=== PATIENT | male | born 1990 | race African-American/Black ===

== ENCOUNTER 2018-11-17 19:13 | Emergency (ER) | payer SELFPAY ==
--- NOTE | 2018-11-17 20:25 | ER Document Report ---
ED Medical Screen (RME) - General Chief Complaint: Bloody Stools Stated Complaint: BLOOD IN STOOL Time Seen by Provider: 11/17/18 20:20 TRAVEL OUTSIDE OF THE [place] IN LAST 30 DAYS: No - HPI Notes: 11/17/18 20:24 Patient is a 28-year-old male no significant past medical history presents complaining of watery diarrhea over the past 2 days without any pain or discomfort. Patient states that he started noticing a couple small spots of red within the diarrhea. Patient states that he has been able to eat and drink without difficulty otherwise. His normal liquid diet consists of red-colored drinks constantly which she is actively drinking right now. He has no other concerns or complaints. No surgical history to his abdomen. No significant alcohol consumption. Denies SCHWARTZ, fever, neck pain, URI, CP, SOB, Abd pain, dysuria, back pain, or rash. I have treated and performed a rapid initial assessment of this patient. A comprehensive ED assessment and evaluation of the patient, analysis of test r esults and completion of medical decision making process will be conducted by additional ED providers. PHYSICAL EXAMINATION: GENERAL: Well-appearing, well-nourished and in no acute distress. A&Ox4. Answers questions appropriately. LUNGS: Breath sounds clear to auscultation bilaterally and equal. No wheezes rales or rhonchi. HEART: Regular rate and rhythm without murmurs, rubs, gallops. ABDOMEN: Soft, nondistended abdomen. No guarding, no rebound. Normal bowel sounds present. No CVA tenderness bilaterally. grossly nontender (cannot elicit thorough abd exam w/o bed, however). - Related Data Allergies/Adverse Reactions: bees Allergy (Uncoded 10/11/14 09:42) Anaphylaxis Past Medical History - Social History Frequency of alcohol use: Rare Drug Abuse: Marijuana Renal/ Medical History: Denies: Hx Peritoneal Dialysis - Immunizations Immunizations up to date: Yes Hx Diphtheria, Pertussis, Tetanus Vaccination: Yes Physical Exam - Vital signs Vitals: Temp Pulse Resp BP Pulse Ox 97.8 F 52 L 18 132/68 H 99 11/17/18 19:43 11/17/18 19:43 11/17/18 19:43 11/17/18 19:43 11/17/18 19:43 Course - Vital Signs Vital signs: Temp Pulse Resp BP Pulse Ox 97.8 F 52 L 18 132/68 H 99 11/17/18 19:43 11/17/18 19:43 11/17/18 19:43 11/17/18 19:43 11/17/18 19:43
[2018-11-17 21:58] VITALS: BP 126/60
--- NOTE | 2018-11-18 02:45 | ER Document Report ---
Entered by CANDI AMARAL SCRIBE 11/17/[id number] Acting as scribe for:ALDO HENLEY MD ED GI/ - General Chief Complaint: Bloody Stools Stated Complaint: BLOOD IN STOOL Time Seen by Provider: 11/17/18 20:20 Mode of Arrival: Ambulatory Information source: Patient Notes: Patient is a 28-year-old male who presents to the emergency department today with complaints of diarrhea for the last week. Patient describes his diarrhea as watery. Patient states he has been taking Imodium AD [id number] with some relief. Patient states he ate a sausage egg and cheese biscuit this morning which seemed to increase his diarrhea. Patient states he has been having diarrhea every 15 minutes. TRAVEL OUTSIDE OF THE [place] IN LAST 30 DAYS: No - Related Data Allergies/Adverse Reactions: bees Allergy (Uncoded 10/11/14 09:42) Anaphylaxis Past Medical History - General Information source: Patient - Social History Smoking Status: Current Every Day Smoker Cigarette use (# per day): Yes Frequency of alcohol use: Rare Drug Abuse: Marijuana Lives with: Family Family History: Arthritis, Hypertension Patient has suicidal ideation: No Patient has homicidal ideation: No Renal/ Medical History: Denies: Hx Peritoneal Dialysis - Immunizations Immunizations up to date: Yes Hx Diphtheria, Pertussis, Tetanus Vaccination: Yes Review of Systems - Review of Systems Constitutional: No symptoms reported EENT: No symptoms reported Cardiovascular: No symptoms reported Respiratory: No symptoms reported Gastrointestinal: See HPI, Abdominal pain, Diarrhea. denies: Vomiting Genitourinary: No symptoms reported Male Genitourinary: No symptoms reported Musculoskeletal: No symptoms reported Skin: No symptoms reported Hematologic/Lymphatic: No symptoms reported Neurological/Psychological: No symptoms reported -: Yes All other systems reviewed and negative Physical Exam - Vital signs Vitals: Temp Pulse Resp BP Pulse Ox 97.8 F 52 L 18 132/68 H 99 11/17/18 19:43 11/17/18 19:43 11/17/18 19:43 11/17/18 19:43 11/17/18 19:43 - Notes Notes: Physical Exam: General: Alert, appears well. HEENT: Normocephalic. Atraumatic. PERRL. Extraocular movements intact. Oropharynx clear. Neck: Supple. Non-tender. Respiratory: No respiratory distress. Clear and equal breath sounds bilaterally. Cardiovascular: Regular rate and rhythm. Abdominal: Normal Inspection. Non-tender. No distension. Normal Bowel Sounds. Back: Grossly normal Extremities: Moves all four extremities. Upper extremities: Normal inspection. Normal ROM. Lower extremities: Normal inspection. No edema. Normal ROM. Neurological: Normal cognition. AAOx4. Normal speech. Psychological: Normal affect. Normal Mood. Skin: Warm. Dry. Normal color. Course - Re-evaluation Re-evalutation: 11/17/18 21:15 After telling me that he is having diarrhea every 15 minutes, the patient just told the nurse that he does not feel that he will be able to go anytime soon and wants a lab slip to go home with to provide a specimen later. - Vital Signs Vital signs: Temp Pulse Resp BP Pulse Ox 97.8 F 52 L 18 132/68 H 99 11/17/18 19:43 11/17/18 19:43 11/17/18 19:43 11/17/18 19:43 11/17/18 19:43 Discharge - Discharge Clinical Impression: Diarrhea Qualifiers: Diarrhea type: unspecified type Qualified Code(s): R19.7 - Diarrhea, unspecified Condition: Stable Disposition: HOME, SELF-CARE Additional Instructions: Diarrhea Diarrhea means frequent, watery stools. There are many causes. Any problem that keeps the intestinal tract from absorbing water from the stool can lead to diarrhea. A sudden new diarrhea problem is usually caused by a virus, food sensitivity, toxic bacteria, or drugs. In this case, we expect the problem to go away soon. Testing is done only if you seem seriously ill from the diarrhea. If you have chronic diarrhea, or diarrhea that keeps coming back, we need to find out why. Chronic diarrhea can be due to inflammation of the bowels such as Crohn's disease or ulcerative colitis, food sensitivity such as intolerance to lactose or wheat protein, irritable bowel syndrome, and other problems. If your diarrhea is a significant problem but it's not clear why you have it, we'll refer you to a specialist for further testing. During an episode of diarrhea, drink small amounts (two to six ounces) of clear liquids (soft drinks, sport drinks, herb teas, broth, etc). Take fluids frequently to prevent dehydration. It's usually not a problem to take mild anti- diarrhea medication such as Kaopectate or Pepto-Bismol. As the diarrhea eases, advance to small amounts of bland food (mashed potato, toast) for 24 hours. Call the physician if blood appears in your vomit or stool, if vomiting lasts longer than 24 hours, if the abdominal pain worsens or becomes localized to one area, if you develop high fever, or if you become lightheaded and weak. You are provided with outpatient lab slips to have a diarrhea specimen sent to the lab for culture. Forms: Follow-Up Laboratory Testing Scribe Attestation: 11/17/18 21:16 I personally performed the services described in the documentation, reviewed and edited the documentation which was dictated to the scribe in my presence, and it accurately records my words and actions. I personally performed the services described in the documentation, reviewed and edited the documentation which was dictated to the scribe in my presence, and it accurately records my words and actions.
== END 2018-11-17 21:56 | disposition home or self-care (01) ==
LOC: ER 19:13
DX: R19.7 Diarrhea, unspecified (principal); R19.5 Other fecal abnormalities; F17.210 Nicotine dependence, cigarettes, uncomplicated